=== PATIENT | female | born 1995 | race American Indian/Alaskan Native ===

== ENCOUNTER 2019-08-31 18:04 | Emergency (ER) | payer MEDICAID ==
--- NOTE | 2019-08-31 20:23 | Emergency Department Report ---
Blank Doc - Documentation Documentation: 23-year-old female that presents with left ankle pain s/p fall. This initial assessment/diagnostic orders/clinical plan/treatment(s) is/are subject to change based on patient's health status, clinical progression and re- assessment by fellow clinical providers in the ED. Further treatment and workup at subsequent clinical providers discretion. Patient/guardians urged not to elope from the ED as their condition may be serious if not clinically assessed and managed. Initial orders include: 1- Patient sent to [facility] for further evaluation and treatment 2- xrays
[2019-08-31 20:24] VITALS: BP 130/87
[2019-08-31] MEDS ORDERED: HYDROcodone/ACETAMINOPHEN 5-325 MG TAB PO ONE (21:10)
--- NOTE | 2019-08-31 21:15 | XRay Report ---
EXAMINATION: Left ankle radiograph, 3 views CLINICAL INFORMATION: Left ankle pain. Fall. COMPARISON: None. FINDINGS: There is an oblique nondisplaced fracture through the distal fibular metaphysis with associ ated soft tissue swelling. The distal tibia appears intact. IMPRESSION: Nondisplaced distal fibular fracture. Signer Name: Janice Edwards MD Signed: 08/31/2019 9:11 PM Workstation Name: [id number]
--- NOTE | 2019-08-31 22:08 | Emergency Department Report ---
ED Lower Extremity HPI - General Chief Complaint: Extremity Injury, Lower Stated Complaint: FOOT SWELLLING Time Seen by Provider: 08/31/19 20:22 Source: patient Mode of arrival: Wheelchair Limitations: No Limitations - History of Present Illness Initial Comments: Ms. Rocha is a 23-year-old female that presents with left ankle pain s/p fall. Now unable to bear weight pain is 8/10. Pain is exacerbated by attempted weightbearing. Pain is relieved by offloading. Patient is unable to bear weight on left ankle at this time. MD Complaint: ankle injury Onset/Timin -: hour(s) Injury: Ankle: Right Type of Injury: eversion Place: street/outdoors Severity: moderate Severity scale (0 -10): 8 Improves With: nothing Worsens With: weight bearing, movement, palpation Context: fall Other Symptoms: loss of consciousness Associated Symptoms: snap/pop sensation, swelling, tingling, unable to bear weight. denies: numbness - Related Data Previous Rx's Medication Instructions Recorded Last Taken Type HYDROcodone/APAP 5-325 [[place] 1 each PO Q6HR PRN #12 tablet 08/31/19 Unknown Rx 5-325 mg TAB] Allergies Allergy/AdvReac Type Severity Reaction Status Date / Time No Known Allergies Allergy Unverified 08/31/19 18:10 ED Review of Systems ROS: Stated complaint: FOOT SWELLLING Other details as noted in HPI Constitutional: denies: chills, fever Eyes: denies: eye pain, eye discharge, vision change ENT: denies: ear pain, throat pain Respiratory: denies: cough, shortness of breath, wheezing Cardiovascular: denies: chest pain, palpitations Endocrine: no symptoms reported Gastrointestinal: denies: abdominal pain, nausea, diarrhea Genitourinary: denies: urgency, dysuria, discharge Musculoskeletal: joint swelling Skin: denies: rash, lesions Neurological: denies: headache, weakness, paresthesias Psychiatric: denies: anxiety, depression Hematological/Lymphatic: denies: easy bleeding, easy bruising ED Past Medical Hx - Past Medical History Previous Medical History?: No - Surgical History Past Surgical History?: No - Social History Smoking Status: Current Every Day Smoker - Medications Home Medications: Home Medications Medication Instructions Recorded Confirmed Last Taken Type HYDROcodone/APAP 5-325 [[place] 1 each PO Q6HR PRN #12 tablet 08/31/19 Unknown Rx 5-325 mg TAB] ED Physical Exam - General Limitations: No Limitations General appearance: alert, in no apparent distress - Head Head exam: Present: atraumatic, normocephalic - Eye Eye exam: Present: normal appearance, PERRL, EOMI Pupils: Present: normal accommodation - ENT ENT exam: Present: mucous membranes moist - Neck Neck exam: Present: normal inspection, full ROM. Absent: tenderness - Respiratory Respiratory exam: Present: normal lung sounds bilaterally. Absent: respiratory distress, wheezes, stridor, chest wall tenderness - Cardiovascular Cardiovascular Exam: Present: regular rate, normal rhythm, normal heart sounds. Absent: systolic murmur, diastolic murmur, rubs, gallop - GI/Abdominal GI/Abdominal exam: Present: soft, normal bowel sounds. Absent: tenderness - Rectal Rectal exam: Present: deferred - Extremities Exam Extremities exam: Present: tenderness, joint swelling (right ankle ) - Expanded Lower Extremity Exam Right Ankle exam: Present: tenderness (left lateral ankle swelling pain neg aquino's , pain with rotation), swelling. Absent: abrasion, laceration, ecchymosis, deformity, crepidus, dislocation, erythema, anterior draw sign Foot/Toe exam: Present: tenderness, swelling Neuro vascular tendon exam: Absent: pulse deficit, motor deficit, sensory deficit, tendon deficit Gait: Positive: unable to bear weight - Back Exam Back exam: Present: normal inspection, full ROM. Absent: tenderness, vertebral tenderness - Neurological Exam Neurological exam: Present: alert, oriented X3, CN II-XII intact, normal gait, reflexes normal. Absent: motor sensory deficit - Expanded Neurological Exam Expanded Patient oriented to: Present: person, place, time Speech: Present: fluid speech Motor strength exam: RUE: 5, LUE: 5, RLE: 5, LLE: 5 Best Eye Response ([place]): (4) open spontaneously Best Motor Response ([place]): (6) obeys commands Best Verbal Response ([place]): (5) oriented [place] Total: 15 - Psychiatric Psychiatric exam: Present: normal affect, normal mood - Skin Skin exam: Present: warm, dry, intact, normal color. Absent: rash ED Course Vital Signs 08/31/19 18:47 Temperature 97.8 F Pulse Rate 90 Respiratory 18 Rate Blood Pressure 130/87 O2 Sat by Pulse 98 Oximetry ED Lower Extremity MDM - Radiology Data Radiology results: report reviewed, image reviewed Findings [facility] [address] [place] [address] XRay Report Signed Patient: DEBBIE ROCHA MR#: [id number] : 1995 Acct:[id number] Age/Sex: 23 / F ADM Date: 08/31/19 Loc: ED Attending Dr: Ordering Physician: VIC CASTANEDA NP Date of Service: 08/31/19 Procedure(s): XR ankle 3+V LT Accession Number(s): [id number] cc: VIC CASTANEDA NP Fluoro Time In Minutes: EXAMINATION: Left ankle radiograph, 3 views CLINICAL INFORMATION: Left ankle pain. Fall. COMPARISON: None. FINDINGS: There is an oblique nondisplaced fracture through the distal fibular metaphysis with associated soft tissue swelling. The distal tibia appears intact. IMPRESSION: Nondisplaced distal fibular fracture. Signer Name: Janice Edwards MD Signed: 08/31/2019 9:11 PM Workstation Name: [id number] Transcribed By: EB Dictated By: Janice Edwards MD Electronically Authenticated By: Janice Edwards MD Signed Date/Time: 08/31/192110 DD/ 08 TD/TT: - Medical Decision Making Xray: left closed distal fibula fracture nondisplaced, plan: bindu short leg, crutches,follow up with orthopedics in 2-3 days, pt verbalized agreement and understanding of discharge plan. Solint check completed spaces is appropriate. pt dc'd in stable condition. Critical care attestation.: If time is entered above; I have spent that time in minutes in the direct care of this critically ill patient, excluding procedure time. ED Disposition Clinical Impression: Ankle fracture, left Qualifiers: Encounter type: initial encounter Fracture type: closed Qualified Code(s): S82.892A - Other fracture of left lower leg, initial encounter for closed fracture Disposition: DC-01 TO HOME OR SELFCARE Is pt being admited?: No Does the pt Need Aspirin: No Condition: Stable Instructions: Ankle Fracture (ED), Splint Care (ED), Crutch Instructions (ED) Prescriptions: HYDROcodone/APAP 5-325 [[place] 5-325 mg TAB] 1 each PO Q6HR PRN #12 tablet PRN Reason: Pain Referrals: SHARRON STOVALL MD [Staff Physician] - 3-5 Days Forms: Work/School Release Form(ED) Time of Disposition: 22:14
== END 2019-08-31 23:10 | disposition home or self-care (01) ==
LOC: ED 18:04
DX: S82.892A Other fracture of left lower leg, initial encounter for closed fracture (principal); F17.200 Nicotine dependence, unspecified, uncomplicated; Z79.899 Other long term (current) drug therapy; X58.XXXA Exposure to other specified factors, initial encounter; Y93.89 Activity, other specified; Y92.89 Other specified places as the place of occurrence of the external cause; Y99.8 Other external cause status